=== PATIENT | female | born 1950 ===

== ENCOUNTER 2025-02-16 08:27 | Outpatient (CLI) | payer MEDICARE | END 2025-02-16 08:28 | disposition home or self-care (01) | LOC: NM 08:27 | PROVIDERS: ATTEND Internal Medicine | DX: E21.3 Hyperparathyroidism, unspecified (principal); E83.52 Hypercalcemia | CPT/HCPCS: 78072; A9500 ==

== ENCOUNTER 2025-06-09 10:19 | Outpatient (CLI) | payer MEDICARE | END 2025-06-09 10:20 | disposition home or self-care (01) | LOC: BICCT 10:19 | PROVIDERS: ATTEND Internal Medicine Critical Care Medicine | DX: R91.8 Other nonspecific abnormal finding of lung field (principal); I77.810 Thoracic aortic ectasia; S22.089A Unspecified fracture of T11-T12 vertebra, initial encounter for closed fracture | CPT/HCPCS: 71250 ==